=== PATIENT | female | born 1995 | race Caucasian/White ===

== ENCOUNTER 2017-03-19 17:13 | Emergency (ER) | payer BC ==
[2017-03-19 17:40] VITALS: BP 111/63
--- NOTE | 2017-03-19 18:21 | ER Document Report ---
ED ENT - General Chief Complaint: Nose Pain Stated Complaint: SWELLING IN NOSE Time Seen by Provider: 03/19/17 18:01 Mode of Arrival: Ambulatory Information source: Patient Notes: 21-year-old female presents to ED for good nasal passage swelling with white spots on both nostrils. She states she has been seen last week and treated for ear infections with amoxicillin and neomycin eardrops. TRAVEL OUTSIDE OF THE [place] IN LAST 30 DAYS: No - HPI Patient complains to provider of: Nose problem Onset: This morning Onset/Duration: Gradual Quality of pain: Achy Severity: Mild Pain Level: 2 Context: Recent Illness Location of pain: Nose Associated symptoms: Runny nose, Sinus drainage, Other - States she sees white spots in both nostrils. denies: Fever Similar symptoms previously: No Recently seen / treated by doctor: Yes - Related Data Allergies/Adverse Reactions: No Known Allergies Allergy (Verified 03/19/17 17:36) Past Medical History - General Information source: Patient - Social History Smoking Status: Never Smoker Frequency of alcohol use: None Drug Abuse: None Lives with: Family Family History: Reviewed & Not Pertinent Patient has suicidal ideation: No Patient has homicidal ideation: No - Past Medical History Cardiac Medical History: Reports: None Pulmonary Medical History: Reports: None EENT Medical History: Reports: None Neurological Medical History: Reports: None Endocrine Medical History: Reports: None Renal/ Medical History: Reports: None Malignancy Medical History: Reports: None GI Medical History: Reports: None Musculoskeltal Medical History: Reports None Skin Medical History: Reports Hx Cellulitis, Reports Hx MRSA Psychiatric Medical History: Reports: None Traumatic Medical History: Reports: None Infectious Medical History: Reports: Hx MRSA Surgical Hx: Negative Past Surgical History: Reports: None Review of Systems - Review of Systems Constitutional: No symptoms reported EENT: Nose discharge, Sinus discharge Cardiovascular: No symptoms reported Respiratory: No symptoms reported Gastrointestinal: No symptoms reported Genitourinary: No symptoms reported Female Genitourinary: No symptoms reported Musculoskeletal: No symptoms reported Skin: No symptoms reported Hematologic/Lymphatic: No symptoms reported Neurological/Psychological: No symptoms reported Physical Exam - Vital signs Vitals: Temp Pulse Resp BP Pulse Ox 97.9 F 70 14 111/63 100 03/19/17 17:37 03/19/17 17:37 03/19/17 17:37 03/19/17 17:37 03/19/17 17:37 Interpretation: Normal - General General appearance: Appears well, Alert - HEENT Head: Normocephalic, Atraumatic Eyes: Normal Pupils: PERRL Ears: Normal External canal: Normal Tympanic membrane: Normal Sinus: Normal Nasal: Swelling, Clear rhinorrhea Mouth/Lips: Normal Mucous membranes: Normal Pharynx: Post nasal drainage Neck: Normal - Respiratory Respiratory status: No respiratory distress Chest status: Nontender Breath sounds: Normal Chest palpation: Normal - Cardiovascular Rhythm: Regular Heart sounds: Normal auscultation Murmur: No - Abdominal Inspection: Normal Distension: No distension Bowel sounds: Normal Tenderness: Nontender Organomegaly: No organomegaly - Back Back: Normal, Nontender - Extremities General upper extremity: Normal inspection, Nontender, Normal color, Normal ROM , Normal temperature General lower extremity: Normal inspection, Nontender, Normal color, Normal ROM , Normal temperature, Normal weight bearing. No: Corby's sign - Neurological Neuro grossly intact: Yes Cognition: Normal Orientation: AAOx4 Raffi Coma Scale Eye Opening: Spontaneous Stewart Coma Scale Verbal: Oriented Stewart Coma Scale Motor: Obeys Commands Stewart Coma Scale Total: 15 Speech: Normal Motor strength normal: LUE, RUE, LLE, RLE Sensory: Normal - Psychological Associated symptoms: Normal affect, Normal mood - Skin Skin Temperature: Warm Skin Moisture: Dry Skin Color: Normal Course - Vital Signs Vital signs: Temp Pulse Resp BP Pulse Ox 97.9 F 70 14 111/63 100 03/19/17 17:37 03/19/17 17:37 03/19/17 17:37 03/19/17 17:37 03/19/17 17:37 Discharge - Discharge Clinical Impression: URI (upper respiratory infection) Qualifiers: URI type: unspecified URI Qualified Code(s): J06.9 - Acute upper respiratory infection, unspecified Condition: Stable Disposition: HOME, SELF-CARE Instructions: Family Physicians / Practices Additional Instructions: UPPER RESPIRATORY ILLNESS: You have a viral infection of the respiratory passages -- a "cold." This common infection causes nasal congestion, drainage, and often sore throat and cough. It is highly contagious. The disease usually lasts about 10 to 14 days. There is no "cure" for the viral infection -- it must run its course. If there is a complication, such as bacterial infection in the nose, sinuses, middle ear, or bronchial tubes, antibiotics may be required. The antibiotics won't affect the virus. Drink plenty of fluids. A humidifier may help. An expectorant medication or decongestant may make you more comfortable. Use acetaminophen or ibuprofen for fever or aches. See the doctor if fever persists over two days, if there is any significant worsening of your symptoms, or if you simply fail to improve as expected. DECONGESTANT MEDICATION: A decongestant medicine has been prescribed. Often this medicine is combined in the same tablet with an antihistamine or expectorant. This type of medicine is helpful in treating a bad cold or sinus condition, as well as in treatment of the nasal congestion of hay fever. It is not of much benefit for lung infections. Decongestant medicines are related to stimulants. They can cause an increase in blood pressure and heart rate. Persons with heart disease and high blood pressure should not take decongestants without discussing this with the physician. If you develop palpitations, chest pain, headache, or tremors, stop the medicine and consult your physician. COUGH-SUPPRESSANT & EXPECTORANT MEDICATION: You are to use a cough medication as needed for relief of symptoms. This medicine is a combination of an expectorant (to make the mucous thinner and more easily "coughed up") and a cough suppressant (to reduce the frequency of coughing). The cough-suppressant medicine is related to narcotics. You may experience mild nausea and sleepiness. Some patients who are very sensitive to narcotics may have stomach pain from this medicine. Taking the medicine with food reduces these side effects. Do not drive or work with machinery until you know how this medicine affects you. The expectorant should have no side effects. Iodine-containing expectorants (such as organidin) should not be taken by persons with active thyroid disease unless approved by your doctor. Call the doctor if you develop shortness of breath, hives, rash, itching, lightheadedness, or severe nausea and vomiting. USE OF ACETAMINOPHEN (Tylenol): Acetaminophen may be taken for pain relief or fever control. It's much safer than aspirin, offering a wider range of "safe" dosages. It is safe during . Some brand names are Tylenol, Panadol, Datril, Anacin 3, Tempra, and Liquiprin. Acetaminophen can be repeated every four hours. The following are maximum recommended dosages: >89 pounds or adults 650 mg to 900 mg Acetaminophen can be repeated every four hours. Maximum dose not to exceed 4000 mg a day. Please use saline nasal spray 2-3 times a day FOLLOW-UP CARE: If you have been referred to a physician for follow-up care, call the physician s office for an appointment as you were instructed or within the next two days. If you experience worsening or a significant change in your symptoms, notify the physician immediately or return to the Emergency Department at any time for re-evaluation. Forms: Return to Work
== END 2017-03-19 18:25 | disposition home or self-care (01) ==
LOC: ER 17:13
DX: J06.9 Acute upper respiratory infection, unspecified (principal); J34.89 Other specified disorders of nose and nasal sinuses; R22.0 Localized swelling, mass and lump, head; R09.89 Other specified symptoms and signs involving the circulatory and respiratory systems
CPT/HCPCS: 99283

== ENCOUNTER → 2017-06-10 | Outpatient (CLI) | payer BC ==
--- NOTE | 2017-06-10 17:55 | RADIOLOGY REPORT (SQ) ---
EXAM DESCRIPTION: MRI ORBIT/FACIAL/NECK COMBO COMPLETED DATE/TIME: 06/10/2017 3:21 pm REASON FOR STUDY: CYST OF NASOPHARYNX J30.2 OTHER SEASONAL ALLERGIC RHINITIS COMPARISON: None. TECHNIQUE: Multiplanar multisequence imaging of the soft tissues of the nasopharynx and neck perform ed without and with contrast. All images stored on PACS. CONTRAST TYPE AND DOSE: 10 mL Multihance. RENAL FUNCTION: None required. The patient is less than 50 years old. LIMITATIONS: None. FINDINGS: In the adenoidal soft tissues, just to the right of midline there is a well-circumscribed fluid signal cyst with few enhancing septations along the dorsal aspect. This is completely encased by adenoidal tissue, which enhances postcontrast. No definite impingement on the fossa of Rosenmulle r. No associated fluid in the right middle ear or mastoid. This finding is best shown on axial imag e 11 and sagittal image 13. Overall, this cyst measures 1 cm AP x 0.9 cm transverse by 0.9 cm cranio caudad. 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 A mucus retention cyst along the adenoidal so ft tissues is also possible. Minor salivary gland tumor or Rathke's pouch cyst is considered less li leopoldo. There is no communication meninges or the intracranial cavity to suggest meningocele or enceph alocele. SKULL BASE: Inferior brain parenchyma in the field of view demonstrates a small well-circumscribed fo cus of decreased contrast enhancement 5 mm in size along the anterior lobe of the pituitary gland on sagittal image 13. This may represent a small pituitary microadenoma. There is incidental finding of a benign appearing 12 mm pineal cyst. Remainder of the brain parenchyma in the field of view is unremarkable. MAJOR SALIVARY GLANDS: No solid or cystic masses. No inflammatory changes. LYMPHADENOPATHY: No adenopathy. MUCOSAL MASSES OR ASYMMETRY: No mucosal masses or asymmetry. LARYNX/CORDS: No abnormal findings. VASCULAR STRUCTURES: The major vessels are patent. BONES: Intact. PARANASAL SINUSES: Clear. OTHER: No other significant finding. IMPRESSION: Fluid signal 1 cm cyst in the adenoidal soft tissues just to the right of midline. This may represent a Thornwaldt cyst or mucous or serous retention cyst. No obstructive change of the ri ght eustachian outlet, no right-sided middle ear or mastoid fluid by MRI. 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 COMMENT: AJNR 1999;172:[id number] Radiographics 2017;37 TECHNICAL DOCUMENTATION: JOB ID: [id number] [employer]- All Rights Reserved
== END ==
LOC: RAD 13:28
PROVIDERS: ATTEND Otolaryngology
DX: J39.2 Other diseases of pharynx (principal); J35.8 Other chronic diseases of tonsils and adenoids
CPT/HCPCS: 70543; A9577